=== PATIENT | male | born 1980 | race Hispanic/Latino ===

== ENCOUNTER 2017-10-25 14:16 | Emergency (ER) | payer SELFPAY ==
[2017-10-25 15:01] LABS: Absolute Lymphocytes (CBC) 2.4 K/uL (0.7-4.9); Absolute Monocytes 0.8 K/uL (0.1-1.3); Absolute Neutrophil 9.1 K/uL (1.8-8.0); Basophils % 0.5 % (0-1.3); Eosinophils % 0.4 % (0-4.4); Lymphocytes % 19.5 % (15.3-44.8); MCH 28.2 pg (27.0-35.0); MCV 87.2 fL (80-100); MPV 9.7 fL (7.6-11.3); Monocytes % 6.1 % (3.3-12.3); RBC Red Blood Cell Count 5.27 M/uL (4.33-5.43)
[2017-10-25 15:09] LABS: Bicarbonate 27 mEq/L (21-31); Glucose Level 111 mg/dL (65-120); Sodium Level 138 mEq/L (135-145)
[2017-10-25 15:10] LABS: BUN Blood Urea Nitrogen 11 mg/dL (6-20)
--- NOTE | 2017-10-25 15:39 | RAD REPORT ---
EXAM DESCRIPTION: CT - Chest Abdomen Pelvis W Cont - 10/25/2017 3:26 pm CLINICAL HISTORY: Chest and abdominal pain status post soccer injury COMPARISON: none TECHNIQUE: Computed axial tomography of the chest, abdomen and pelvis was obtained. 100 cc Isovue-30 0 was administered intravenously. Oral contrast was not requested. This limits evaluation of bowel. All CT scans are performed using dose optimization technique as appropriate and may include automated exposure control or mA/KV adjustment according to patient size. FINDINGS: A pleural effusion is not present. A pericardial effusion is not noted A pulmonary contusion is not seen. A mediastinal hematoma is not present. The liver, spleen, pancreas, adrenals and kidneys appear unremarkable. The bladder appears grossly normal. No ascites is seen. IMPRESSION: No traumatic injury involving the chest, abdomen nor pelvis is seen.
--- NOTE | 2017-10-25 15:45 | ER ---
Nurse's Notes [facility] Name: Reese Irvin Age: 37 yrs Sex: Male : 1980 Arrival Date: 10/25/2017 Time: 14:19 Bed 14 Private MD: Diagnosis: Chest pain, unspecified;Acute pain due to trauma Presentation: 10/25 14:23 Acuity: MELISSA 3 aj1 14:32 Presenting complaint: EMS states: pt was kneed in the right side of ribs while playing soccer, denies LOC, is having trouble lifting right arm due to pain. Transition of care: patient was not received from another setting of care. Onset of symptoms was October 25, 2017. Risk Assessment: Do you want to hurt yourself or someone else? Patient reports no desire to harm self or others. Initial Sepsis Screen: Does the patient meet any 2 criteria? No. Patient's initial sepsis screen is negative. Does the patient have a suspected source of infection? No. Patient's initial sepsis screen is negative. Care prior to arrival: Placed on backboard. 14:32 Method Of Arrival: EMS: [facility] iw Historical: - Allergies: 15:56 shrimp; iw - Home Meds: 16:46 None [Active]; iw - PMHx: 16:46 None; iw - Immunization history:: Adult Immunizations not up to date. - Social history:: Smoking status: . - Ebola Screening: : Patient negative for fever greater than or equal to 101.5 degrees Fahrenheit, and additional compatible Ebola Virus Disease symptoms Patient denies exposure to infectious person Patient denies travel to an Ebola-affected area in the 21 days before illness onset No symptoms or risks identified at this time. Screenin:45 Abuse screen: Denies threats or abuse. Denies injuries from another. Nutritional aj1 screening: No deficits noted. Tuberculosis screening: No symptoms or risk factors identified. 16:45 Fall Risk None identified. iw Assessment: 14:45 General: Appears uncomfortable, Behavior is cooperative, restless. Pain: Complains of aj1 pain in right lateral anterior chest Pain currently is 10 out of 10 on a pain scale. Neuro: Level of Consciousness is awake, alert, obeys commands. Cardiovascular: Heart tones S1 S2 present Patient's skin is warm and dry. Rhythm is regular. Respiratory: Airway is patent Respiratory effort is even, unlabored, Respiratory pattern is regular, symmetrical. GI: Abdomen is flat, non-distended, Bowel sounds present X 4 quads. Reports lower abdominal pain. : No signs and/or symptoms were reported regarding the genitourinary system. EENT: No signs and/or symptoms were reported regarding the EENT system. Derm: No signs and/or symptoms reported regarding the dermatologic system. Skin is pink, warm \T\ dry. normal. Musculoskeletal: No signs and/or symptoms reported regarding the musculoskeletal system. Circulation, motion, and sensation intact. 15:45 Reassessment: Patient appears in no apparent distress at this time. No changes from aj1 previously documented assessment. Patient and/or family updated on plan of care and expected duration. Pain level reassessed. Patient is alert, oriented x 3, equal unlabored respirations, skin warm/dry/pink. Vital Signs: 14:45 BP 127 / 96; Pulse 77; Resp 18; Pulse Ox 97% on R/A; aj1 ED Course: 14:19 Patient arrived in ED. aj1 14:23 Raquel Leos, RN is Primary Nurse. aj1 14:23 Triage completed. aj1 14:27 Julien Berger PA is PHCP. jr8 14:27 Facundo Lawrence MD is Attending Physician. jr8 14:40 Arm band placed on. iw 14:45 No provider procedures requiring assistance completed. aj1 14:45 Patient has correct armband on for positive identification. Bed in low position. Call aj1 light in reach. Side rails up X 1. 14:56 Basic Metabolic Panel Sent. ag 14:56 CBC with Diff Sent. ag 14:56 Creatinine for Radiology Sent. ag 14:56 Type And Screen Sent. ag 14:56 Inserted saline lock: 20 gauge in right antecubital area, using aseptic technique. ag Blood collected. 15:26 CT Chest, Abdomen, Pelvis - W/Contrast In Process Unspecified. EDMS 16:44 IV discontinued, intact, bleeding controlled, No redness/swelling at site. Pressure iw dressing applied. Administered Medications: 16:10 Drug: Zofran 4 mg Route: IVP; Site: right antecubital; aj1 16:45 Follow up: Response: No adverse reaction iw 16:10 Drug: morphine 4 mg Route: IVP; Site: right antecubital; aj1 16:45 Follow up: Response: No adverse reaction; Pain is decreased iw Outcome: 15:45 Discharge ordered by MD. mortno 16:44 Discharged to home with friend. iw 16:44 Condition: good 16:44 Discharge instructions given to patient, family, Instructed on discharge instructions, follow up and referral plans. medication usage, Demonstrated understanding of instructions, follow-up care, medications, Prescriptions given X 1. 16:47 Patient left the ED. iw Signatures: Dispatcher [employer] EDMS Raquel Leos RN RN aj1 Alisia Dyer RN RN iw Julien Berger PA PA jr8 Olesya Chilel Corrections: (The following items were deleted from the chart) 16:17 16:13 General: Appears uncomfortable, Behavior is cooperative, restless, aj1 aj1 16:17 16:13 Pain: Complains of pain in right lateral anterior chest Pain currently is 10 out aj1 of 10 on a pain scale. aj1 16:17 16:13 Neuro: Level of Consciousness is awake, alert, obeys commands, aj1 aj1 16:17 16:13 Cardiovascular: Heart tones S1 S2 present Patient's skin is warm and dry. Rhythm aj1 is regular aj1 16:17 16:13 Respiratory: Airway is patent Respiratory effort is even, unlabored, Respiratory aj1 pattern is regular, symmetrical, aj1 16:17 16:13 GI: Abdomen is flat, non-distended, Bowel sounds present X 4 quads. Reports lower aj1 abdominal pain, aj1 16:17 16:13 : No signs and/or symptoms were reported regarding the genitourinary system. aj1aj1 16:17 16:13 EENT: No signs and/or symptoms were reported regarding the EENT system. aj1 aj1 16:17 16:13 Derm: No signs and/or symptoms reported regarding the dermatologic system. Skin aj1 is pink, warm \T\ dry. normal, aj1 16:17 16:13 Musculoskeletal: No signs and/or symptoms reported regarding the musculoskeletal aj1 system. Circulation, motion, and sensation intact. aj1
--- NOTE | 2017-10-25 15:46 | EDPHYS ---
Physician Documentation [facility] Name: Reese Irvin Age: 37 yrs Sex: Male : 1980 Arrival Date: 10/25/2017 Time: 14:19 Bed 14 Private MD: ED Physician Facundo Lawrence HPI: 10/25 15:13 This 37 yrs old Male presents to ER via EMS with complaints of Rib Pain. jr8 15:13 The patient or guardian reports chest pain that is located primarily in the right jr8 lateral anterior chest. Onset: The symptoms/episode began/occurred acutely, today. The pain does not radiate. Associated signs and symptoms: Pertinent positives: abdominal pain. The chest pain is described as sharp. Duration: The patient or guardian reports a single episode, that is still ongoing. Modifying factors: The symptoms are alleviated by nothing. the symptoms are aggravated by breathing, movement, walking. Severity of pain: At its worst the pain was moderate in the emergency department the pain is unchanged. The patient has not experienced similar symptoms in the past. The patient has not recently seen a physician. Patient stated that he was kneed in right side of abdomen and lower ribs during soccer game. Has had pain since then. Denies hitting, head or neck. No LOC . Historical: - Allergies: 15:56 shrimp; iw - Home Meds: 16:46 None [Active]; iw - PMHx: 16:46 None; iw - Immunization history:: Adult Immunizations not up to date. - Social history:: Smoking status: . - Ebola Screening: : Patient negative for fever greater than or equal to 101.5 degrees Fahrenheit, and additional compatible Ebola Virus Disease symptoms Patient denies exposure to infectious person Patient denies travel to an Ebola-affected area in the 21 days before illness onset No symptoms or risks identified at this time. ROS: 15:13 Eyes: Negative for injury, pain, redness, and discharge, ENT: Negative for injury, jr8 pain, and discharge, Neck: Negative for injury, pain, and swelling, Respiratory: Negative for shortness of breath, cough, wheezing, and pleuritic chest pain, Back: Negative for injury and pain, MS/Extremity: Negative for injury and deformity, Skin: Negative for injury, rash, and discoloration, Neuro: Negative for headache, weakness, numbness, tingling, and seizure. 15:13 Cardiovascular: Positive for chest pain, with movement, Negative for edema, orthopnea, palpitations, paroxysmal nocturnal dyspnea. 15:13 Abdomen/GI: Positive for abdominal pain, Negative for nausea, vomiting, and diarrhea, abdominal distension, hematemesis, black/tarry stool, rectal bleeding. Exam: 15:37 Head/Face: Normocephalic, atraumatic. Eyes: Pupils equal round and reactive to light, jr8 extra-ocular motions intact. Lids and lashes normal. Conjunctiva and sclera are non-icteric and not injected. Cornea within normal limits. Periorbital areas with no swelling, redness, or edema. ENT: Nares patent. No nasal discharge, no septal abnormalities noted. Tympanic membranes are normal and external auditory canals are clear. Oropharynx with no redness, swelling, or masses, exudates, or evidence of obstruction, uvula midline. Mucous membranes moist. Neck: Trachea midline, no thyromegaly or masses palpated, and no cervical lymphadenopathy. Supple, full range of motion without nuchal rigidity, or vertebral point tenderness. No Meningismus. Cardiovascular: Regular rate and rhythm with a normal S1 and S2. No gallops, murmurs, or rubs. Normal PMI, no JVD. No pulse deficits. Respiratory: Lungs have equal breath sounds bilaterally, clear to auscultation and percussion. No rales, rhonchi or wheezes noted. No increased work of breathing, no retractions or nasal flaring. Back: No spinal tenderness. No costovertebral tenderness. Full range of motion. Skin: Warm, dry with normal turgor. Normal color with no rashes, no lesions, and no evidence of cellulitis. MS/ Extremity: Pulses equal, no cyanosis. Neurovascular intact. Full, normal range of motion. Neuro: Awake and alert, GCS 15, oriented to person, place, time, and situation. Cranial nerves II-XII grossly intact. Motor strength 5/5 in all extremities. Sensory grossly intact. Cerebellar exam normal. Normal gait. 15:37 Chest/axilla: Inspection: normal, Palpation: tenderness, that is moderate, of the right lateral anterior chest. 15:37 Abdomen/GI: Inspection: abdomen appears normal, Bowel sounds: active, all quadrants, Palpation: soft, in all quadrants, moderate abdominal tenderness, in the anterior aspect of right lateral abdomen and right upper quadrant, voluntary guarding, is elicited in the right upper quadrant, involuntary guarding, is not appreciated, no appreciated organomegaly, Liver: tenderness, that is moderate. Vital Signs: 14:45 BP 127 / 96; Pulse 77; Resp 18; Pulse Ox 97% on R/A; aj1 MDM: 14:27 Patient medically screened. jr8 15:41 Data reviewed: vital signs, nurses notes, lab test result(s), radiologic studies, CT jr8 scan, and as a result, I will discharge patient. Data interpreted: Pulse oximetry: on room air is 100 %. Interpretation: normal. Counseling: I had a detailed discussion with the patient and/or guardian regarding: the historical points, exam findings, and any diagnostic results supporting the discharge/admit diagnosis, lab results, radiology results, the need for outpatient follow up, a family practitioner, to return to the emergency department if symptoms worsen or persist or if there are any questions or concerns that arise at home. 10/25 14:31 Order name: Basic Metabolic Panel; Complete Time: 15:11 10/25 14:31 Order name: CBC with Diff; Complete Time: 15:11 10/25 14:31 Order name: Creatinine for Radiology; Complete Time: 15:11 10/25 14:31 Order name: Type And Screen; Complete Time: 15:40 10/25 14:31 Order name: CT Chest, Abdomen, Pelvis - W/Contrast; Complete Time: 15:40 10/25 15:45 Order name: ABO/RH no charge; Complete Time: 15:45 EDMS 10/25 14:31 Order name: Labs collected and sent; Complete Time: 14:56 10/25 14:31 Order name: Urine Dipstick-Ancillary (obtain specimen); Complete Time: 14:56 Administered Medications: 16:10 Drug: Zofran 4 mg Route: IVP; Site: right antecubital; aj1 16:45 Follow up: Response: No adverse reaction iw 16:10 Drug: morphine 4 mg Route: IVP; Site: right antecubital; aj1 16:45 Follow up: Response: No adverse reaction; Pain is decreased iw Disposition: 10/26 14:08 Co-signature as Attending Physician, Facundo Lawrence MD I agree with the assessment and genevieve plan of care. Disposition: 10/25/17 15:45 Discharged to Home. Impression: Chest pain, unspecified, Acute pain due to trauma. - Condition is Stable. - Discharge Instructions: Chest Wall Pain. - Prescriptions for Ibuprofen 800 mg Oral Tablet - take 1 tablet by ORAL route every 12 hours As needed take with food; 20 tablet. - Work release form, Medication Reconciliation Form, Thank You Letter, Antibiotic Education, Prescription Opioid Use form. - Follow up: Private Physician; When: 2 - 3 days; Reason: Recheck today's complaints, Continuance of care, Re-evaluation by your physician. - Problem is new. - Symptoms have improved. Signatures: Dispatcher [employer] EDMS Raquel Leos RN RN ajFacundo Ovalle MD MD cha Williams, Irene, RN RN iw Roszak, Josh, PA PA jr8 Corrections: (The following items were deleted from the chart) 10/25 16:47 15:45 10/25/2017 15:45 Discharged to Home. Impression: Chest pain, unspecified; Acute iw pain due to trauma. Condition is Stable. Forms are Medication Reconciliation Form, Thank You Letter, Antibiotic Education, Prescription Opioid Use. Follow up: Private Physician; When: 2 - 3 days; Reason: Recheck today's complaints, Continuance of care, Re-evaluation by your physician. Problem is new. Symptoms have improved. jr8
[2017-10-25] MEDS ORDERED: MORPHINE 4 MG/ML SYR ONE (16:05)
[2017-10-25] MEDS ORDERED: ONDANSETRON 4 MG/2 ML VIAL ONE (16:05)
== END 2017-10-25 16:47 | disposition home or self-care (01) ==
LOC: ER 14:16
DX: G89.11 Acute pain due to trauma (principal); Z91.013 Allergy to seafood
CPT/HCPCS: 36415; 71260; 74177; 80048; 85025; 86850; 86900; 86901; 96374; 96375; 99284; J2405; Q9967